=== PATIENT | female | born 1975 ===

== ENCOUNTER 2020-10-25 06:17 | Day surgery (SDC) | payer BC ==
[2020-10-20 15:20] LABS: Absolute Lymphocytes (CBC) 1.6 K/uL (0.7-4.9); Basophils % 0.5 % (0-1.3); Hematocrit 37.7 % (36.0-45.0); Lymphocytes % 23.8 % (15.3-44.8); MPV 7.3 fL (7.6-11.3); RBC Red Blood Cell Count 4.02 M/uL (3.86-4.86)
--- NOTE | 2020-10-23 15:54 | EKG ---
Test Date: 2020-10-20 Test Time: 13:50:16 Magazine Keeper: GERHARD MEASUREMENT RESULTS: Intervals: Rate: 80 MA: 152 QRSD: 88 QT: 376 QTc: 433 [place]: P: 23 MA: 152 QRS: 8 T: 24 INTERPRETIVE STATEMENTS: Normal sinus rhythm with sinus arrhythmia Normal ECG No previous ECG available for comparison Electronically Signed On 10-23-20 15:47:47 CDT by Chuck Hernandez
[2020-10-25 06:34] LABS: Specific Gravity 1.025 (1.005-1.030)
[2020-10-25] MEDS ORDERED: Ringers Lactate 1,000 ML IV ONE ×2 (06:41→09:39)
[2020-10-25] MEDS ORDERED: CEFOXITIN/SWI 1gm 1 GM/10 ML SYR ONE (06:41)
[2020-10-25] MEDS ORDERED: FENTANYL CITR 100 MCG/2 ML ONE (07:38)
[2020-10-25] MEDS ORDERED: LIDOCAINE 1% MPF 5 ML VIAL ONE (07:38)
[2020-10-25] MEDS ORDERED: ROCURONIUM 50 MG/5 ML VIAL IV ONE (07:38)
[2020-10-25] MEDS ORDERED: propofoL 200 MG/20 ML VIAL IV ONE (07:38)
[2020-10-25] MEDS ORDERED: MIDAZOLAM HCL 2 MG/2 ML INJ ONE ×2 (07:38→08:00)
--- NOTE | 2020-10-25 07:55 | P.HP ---
Date of Service: 10/25/20 PC: This 45-year-old female presents for a laparoscopic cholecystectomy with cholangiogram. HPC: Patient has been experiencing right upper quadrant abdominal pain, radiating into her back. She has had this pain over the last year so. On workup was found to have E coli is cystitis with cholelithiasis. PMH: History of reflux esophagitis, peptic ulcer disease PSHx: Negative SOC: No known allergies, nonsmoker SYS REVIEW: No cough, wheeze, shortness of breath. No chest pain or palpitations. No urinary complaints O/E awake alert vital signs are stable HEENT: Nonicteric Chest: Air entry equal bilaterally ABD: Mild right upper quadrant tenderness LOCO: Intact DATA: Has documented gallstones IMPRESSION: Cholecystitis with cholelithiasis PLAN: I will take her the operating room for laparoscopic possible open cholecystectomy with cholangiogram. The risks of this procedure have been discussed. The possibility of bleeding, infection, injury to bile ducts blood vessels intestines has been described. The possible need for an open and/or further surgeries and procedures was discussed. She understands and wants to proceed.
[2020-10-25] MEDS ORDERED: KETOROLAC 30 MG/ML INJ ONE (08:29)
[2020-10-25] MEDS ORDERED: dexAMETHasone 10 MG/ML VIAL ONE (08:29)
[2020-10-25] MEDS ORDERED: ONDANSETRON 4 MG/2 ML VIAL ONE (08:37)
[2020-10-25] MEDS ORDERED: Phenylephrine HCl 10 MG/ML 1 ML VIAL ONE (08:49)
[2020-10-25] MEDS ORDERED: NS 0.9% VIAL 10 ML ONE (08:49)
[2020-10-25] MEDS ORDERED: GLYCOPYRROLATE 0.2 MG/ML SYR ONE (09:38)
[2020-10-25] MEDS ORDERED: NEOSTIGMINE 1 MG/ML -5 ML ONE (09:46)
--- NOTE | 2020-10-25 09:49 | P.OP ---
Preoperative diagnosis: Chronic cholecystitis with cholelithiasis Postoperative diagnosis: The same Primary procedure: Laparoscopic cholecystectomy Secondary procedure: Cholangiogram Anesthesia: General Estimated blood loss: Less than 20 cc Specimen: 1 gallbladder and contents Operative Technique: The patient was brought to the operating room and placed supine on the table. After the induction of adequate general endotracheal anesthesia, there the abdomen was prepped with a DuraPrep solution, and she is draped in usual aseptic manner. A subumbilical incision was made. This brought down through the skin and subcutaneous tissue. The Visiport was now used to enter the peritoneal cavity and created pneumoperitoneum to approximately 12 mm of mercury. Under direct vision a 5 mm trocar was placed in the upper midline, and 2 other 5 mm trocars on the right lateral side of the abdominal wall. The patient is now placed in reverse in Trendelenburg. We could visualize in the right upper quadrant a distended gallbladder. It was slightly edematous. It was necessary to aspirate the contents so we could place a grasper on the fundus of the gallbladder itself. Applying gentle traction were and elevate the gallbladder ran demonstrate the Enedina's pouch. Enedina's pouch was identified and grasped with another grasper. Gentle dissection allowed us to expose the cystic duct and artery. Having obtained the critical view, a clip was now placed between the gallbladder and the cystic duct. An opening was made into the cystic duct through which we obtained a normal intraoperative cholangiogram. We could see good flow contrast into the duodenum. No filling defects were noted. The catheter was now withdrawn. Clips were placed across the cystic duct which was now fully transected. The cystic artery was identified clipped and divided as well. The gallbladder was now dissected free from the liver bed. This be noted this 81 had a very large distended gallbladder with both acute and chronic component in the surrounding tissue with of the gallbladder itself. The gallbladder finally being detached was now placed into an Endo-Catch and brought out through the umbilical trocar site. At this point the abdomen was inspected to ensure adequate hemostasis. The patient was placed flat on the OR table. The irrigating fluid was aspirated from the peritoneal cavity. At this point the Endo Close was used to approximate the umbilical fascia. This having been done, the pneumoperitoneum was now collapsed, the trocars removed, and brittany applied to the skin. At the end of the procedure the patient is in a stable condition when sent to the recovery room. Needle sponge instrument count were reported as correct. No drains were placed. Complications: None Transferred to: Recovery Room Condition: Good
[2020-10-25] MEDS ORDERED: ONDANSETRON 4 MG/2 ML VIAL IV PRN (10:00)
[2020-10-25] MEDS ORDERED: MORPHINE 4 MG/ML SYR IV PRN (10:00)
[2020-10-25] MEDS: MEPERIDINE HCL 50 MG/ML ONE ×2 (11:02→11:32)
--- NOTE | 2020-10-25 11:33 | RAD REPORT ---
EXAM DESCRIPTION: RADCholangiogram Oper-Xray Or10/25/2020 11:26 am CLINICAL HISTORY: Abdominal pain FINDINGS: The examination was performed by Dr. Nieves. The cystic duct was cannulated and contrast administered. Contrast flowed into the duodenum. The biliary tree is normal caliber without a permanent filling def ect seen. Fluoroscopy time 0.3 minutes. Six fluoroscopic spot images obtained
[2020-10-25 13:15] VITALS: BMI 35.4
[2020-10-25] MEDS: HYDROCODONE/APAP 7.5/325 MG TAB PO PRN ×2 (13:19→20:46)
[2020-10-25] MEDS: Ringers Lactate 1,000 ML IV SCH ×2 (13:20→19:54)
[2020-10-26 00:03] VITALS: O2SAT 94
[2020-10-26] MEDS: HYDROCODONE/APAP 7.5/325 MG TAB PO PRN ×2 (02:45→08:56)
[2020-10-26] MEDS: Ringers Lactate 1,000 ML IV SCH (06:03)
[2020-10-26 08:27] VITALS: BP 109/59; TEMP 97.7
== END 2020-10-26 09:20 | disposition home or self-care (01) ==
LOC: OR 06:17 → 2ND 10:00 → OR 10-26 09:20
PROVIDERS: ATTEND Surgery
PROC: 0FT44ZZ Resection of Gallbladder, Percutaneous Endoscopic Approach (ICD-10-PCS; principal; 2020-10-25 07:30)
DX: K80.10 Calculus of gallbladder with chronic cholecystitis without obstruction (principal); Z20.822 Contact with and (suspected) exposure to COVID-19
CPT/HCPCS: 93005; 85025; 36415; 81025; 88304; 74300; 94010; 47562; U0002; J2704; J2370; J2250 ×2; J3010; J1100; J2175; J2710; J7120 ×4; J2405